=== PATIENT | female | born 1955 | race Caucasian/White ===

== ENCOUNTER 2017-01-16 10:16 | Emergency (ER) | payer OTHER ==
[~2017-01-16] VITALS: Ht 154.9 cm; Wt 44.5 kg
--- NOTE | 2017-01-16 10:32 | NUR ---
PT IS IN ROOM #2B. DR ARITA EVALUATED THE PT.
--- NOTE | 2017-01-16 11:26 | NUR ---
PT ELOPED AT 1120. DR ARITA NOTIFIED.
== END 2017-01-16 11:30 | disposition left against medical advice (07) ==
LOC: ER 10:16
DX: R10.9 Unspecified abdominal pain (principal)
CPT/HCPCS: A4663